=== PATIENT | male | born 1955 | race Caucasian/White ===

== ENCOUNTER → 2022-04-20 | Outpatient (CLI) | payer OTHER ==
[~2022-04-20] MED LIST: BACTRIM PO; BENADRYL 25MG C25 MG PO; CENTRUM SILVER1 EAC1 PO; CIPRO500 MG PO; COLACE 100MG C100 MG PO; IBUPROFEN800 MG PO; IRON325 M1 PO; LEVAQUIN750 MG PO; LORATADINE10 MG PO; LOSARTAN POTASS25 MG PO; LOVENOX SY30 MG/0.3 SQ; METOPROLOL TART25 MG PO; NORCO 10-325 T1 EACH PO; PERCOCET 10-321 EACH PO; ROCEPHIN 22 G/50 ML IV; SEPTRA PO; VITAMIN C1000 M1 PO
== END ==
LOC: EXRD 09:37
DX: Z00.00 Encounter for general adult medical examination without abnormal findings (principal)
CPT/HCPCS: 76706